=== PATIENT | female | born 1965 | race Two or more races ===

== ENCOUNTER → 2025-09-09 | Outpatient (CLI) | payer MEDICAID, SELFPAY ==
--- NOTE | 2025-09-09 14:00 | XR_ITS ---
EXAMINATION: Thyroid sonography complete TECHNIQUE: Grayscale sonographic images thyroid lobes Date and time: September 09, 2025, 1341 hours INDICATIONS: Abnormal thyroid function test on outside laboratory examination this month. FINDINGS: Right thyroid 4.3 cm Mid pole nodule 5 x 5 mm Lower pole nodule 3 x 2 mm Left thyroid 3.9 cm Upper pole nodule 5 x 5 mm Mid pole nodule 5 x 4 mm IMPRESSION: Small thyroid nodules as above
== END | disposition home or self-care (01) ==
PROVIDERS: PCP Family Medicine; Referring Provider Family Medicine; Visit Provider Family Medicine
DX: E04.2 Nontoxic multinodular goiter (principal)
CPT/HCPCS: 76536